=== PATIENT | female | born 1990 | race Caucasian/White ===

== ENCOUNTER 2018-08-04 04:12 | Emergency (ER) | payer MEDICAID, SELFPAY ==
[2018-08-04 04:14] VITALS: BP 128/89; PULSE 82; TEMP 36.6; O2SAT 100; BMI 18.3
--- NOTE | 2018-08-04 04:28 | EKG12_ITS ---
Test Reason : FLANK PAIN Blood Pressure : / mmHG Vent. Rate : 075 BPM Atrial Rate : 075 BPM P-R Int : 144 ms QRS Dur : 094 ms QT Int : 362 ms P-R-T Axes : 060 070 055 degrees QTc Int : 404 ms Normal sinus rhythm Incomplete right bundle branch block Confirmed by MATHEUS BARRIENTOS, HERRERA ([id number]), online content editor LYLA VAZQUEZ ([id number]) on 08/09/2018 2:44:26 PM Referred By: ALY Confirmed By:HERRREA JARVIS MD
--- NOTE | 2018-08-04 04:28 | RAD_ITS ---
STUDY: X-RAY CHEST REASON FOR EXAM: Female, 27 years old. Pain TECHNIQUE: Single frontal view of the chest. COMPARISON: None. FINDINGS: The lungs are clear and expanded. There is no demonstrated pleural abnormality. Normal size heart. Normal mediastinum and jorge. Normal visualized pulmonary arteries. Normal visualized aortic arch and descending thoracic aorta. There are mild degenerative changes of the visualized thoracic spine. Normal visualized ribs, clavicles, and shoulders. There is no demonstrated abnormality of the visualized soft tissue structures of the upper abdomen. RAD/Chest 1 View (Portable) IMPRESSION: No acute cardiopulmonary disease identified. Electronically Signed: Ruy Dennison, at 5:16 EST Tel , Service support ,
[2018-08-04] MEDS: Ketorolac 30 MG/ML Syringe IV (04:33)
[2018-08-04] MEDS: Ondansetron 4 MG/2 ML Vial IV (04:33)
[2018-08-04] MEDS: Morphine 4 MG/ML Syringe IV (04:33)
[2018-08-04] MEDS: 0.9% Normal Saline 1,000 ML 1000 ML IV (04:33)
[2018-08-04 04:46] LABS: Absolute Lymphocyte Count 2.33 X10^3/ul (0.83-4.51); Absolute Neutrophil Count 2.7 X10^3/uL (2.0-7.7); Basophil# 0.02 X10^3/uL; Basophil% 0.4 % (0-1); Eosinophil# 0.08 X10^3/uL; Eosinophils% 1.4 % (0-5); Hemoglobin 15.1 g/dl (12.0-15.0); Lymphocyte # 2.33 X10^3/ul (4.0); Mean Corp Hgb Conc 35.1 g/gl (32-36); Mean Corpuscular Hgb 30.8 pg (27.0-32.0); Mean Corpuscular Volume 87.8 fL (81-99); Mean Platelet Vol. 9.9 fl (6.2-12.0); Monocyte# 0.44 X10^3/uL; Monocyte% 7.9 % (0-10); Neutrophil # 2.67 X10^3/uL (2.7-7.7); Neutrophil % 48.1 % (47-70); Platelet Count 259 K/mm3 (150-450); RBC Distribution Width CV 12.4 % (11.6-14.6); RBC Distribution Width SD 39.3 fl (35.1-43.9); White Blood Count 5.6 K/mm3 (4.4-11.0)
[2018-08-04 04:47] LABS: POSITIVE COUNT NO; POSITIVE DIFFERENTIAL NO; POSITIVE MORPHOLOGY NO
[2018-08-04 05:12] LABS: ALB/GLOB Ratio 1.3 RATIO (0.9-2.4); AST(SGOT) 17 U/L (15-37); Alanine Aminotransfer ALT/SGPT 28 U/L (13-56); Albumin, Serum 4.6 g/dL (3.2-5.0); Alkaline Phosphatase 79 U/L (45-117); Anion Gap 11 (5-15); BUN 23 mg/dL (7-18); BUN/Creat Ratio 24.4 RATIO (10-20); Calcium,Total 9.5 mg/dL (8.5-10.1); Chloride 104 mmol/L (98-107); Creatinine, Serum 0.94 mg/dL (0.55-1.02); EST Glomerular Filtration Rate 76 mL/min (>60); Est Glom Filt Rate - Afr Amer 92 mL/min (>60); Estimated Creatinine Clearance 76.31 ml/min; Globulin 3.5 g/dL (2.2-4.2); Glucose 106 mg/dL (74-106); Lipase 110 U/L (73-393); Protein, Total 8.1 g/dL (6.4-8.2); Sodium Level 140 mmol/L (136-145)
[2018-08-04 05:16] LABS: Pregnancy, Serum, hCG Quali. NEGATIVE Negative (0-9 Nonpreg)
--- NOTE | 2018-08-04 05:19 | ED.DCSUM_ITS ---
- ER Visit Summary Date of Service: 08/04/18 Chief Complaint: Chest and abdominal pain History of Present Illness: The patient is a 27 F with no primary care physician. She reports that at 330 yesterday she had the onset of a chest tightness. She reports that is been gradually increasing. Is 10 out of 10 in severity. Is increased with eating or drinking. It is decreased with standing and walking. States that at the same timeframe she also developed upper abdominal pain. She denies any nausea, vomiting, diarrhea. Patient does report she has had chills and shortness of breath. She denies any fever. She denies any dysuria or frequency. No headache, numbness, or weakness. Physical Examination: Vitals: Stable. Afebrile. General: Well-nourished and well-developed. Head: Normocephalic atraumatic. Neck: Supple, no lymphadenopathy. No JVD. Nontender. Cardiovascular: Regular rate and rhythm. No murmurs. Respiratory: No respiratory distress. Clear to auscultation bilaterally. Abdominal: Soft, moderate epigastric and left upper quadrant tenderness to palpation, mild right upper quadrant tenderness to palpation, no Abarca sign, nondistended, normal bowel sounds. No guarding, rebound, or peritoneal signs. Back: Nontender. Extremities: Nontender, no edema. Skin: Normal color, no rash. Neurologic: Alert and oriented ?3. Cranial nerves II through XII are intact. Normal strength and sensation. Psych: Normal affect. Test Results: EKG is sinus at 75 with no acute changes. Troponin is negative despite greater than 12 hours of constant pain. Chest x-ray is normal. No pneumothorax or infiltrate. CBC is more for hemoglobin of 15.1. Chem-7 is more for BUN of 23. LFTs are normal. Lipase is negative. test is negative. Emergency Department Course and Treatment: Patient had an IV placed. She was treated with morphine, Toradol, and Zofran IV. She does feel improved. However, she reports that it seems as though the pain is localizing in her upper back. Patient reports she has never had this previously. She denies any intolerance to spicy or fatty foods. She states that she last ate approximately 7 hours before the onset of this pain. She denies any recent trauma. Treatment Plan: Discussed the patient at this time I do not have an explanation for her pain. An [facility] report was obtained which shows no prescriptions for opiates in the past year. She will be discharged with a prescription for [address] Earle. Instructed follow-up Dr. Saenz as soon as possible. Return to the emergency department for any worsening symptoms. Disposition: To home in improved and stable condition. Impression: 1. Upper back pain. 2. Chest pain, uncertain cause. 3. Abdominal pain, uncertain cause. This note was generated with [employer] dictation software. It may contain incorrect words, spelling, and punctuation that were not noted in review of the chart prior to signing ED Disposition - Plan for ED Patient: Chief Complaint: Flank Pain Instructions: ED Neck Back Pain General Prescriptions: Hydrocodone Bitart/Apap 5-325 [Earle 5MG-325MG] 1 tablet PO Q4H PRN PRN 2 Days #10 tablet PRN Reason: Pain Naproxen [Naprosyn] 500 mg PO BID PRN #20 tablet Referrals: Jason Saenz DO [[facility] STAFF PHYSICIAN] - As soon as possible
[2018-08-04 05:42] VITALS: BP 113/69; PULSE 87; RESP 16; O2SAT 97
[2018-08-04] MEDS: HYDROcodone Bitartrate/Apap 5/325 Tablet PO (05:47)
== END 2018-08-04 05:52 | disposition home or self-care (01) ==
LOC: ED 04:32
PROVIDERS: Emergency Provider Emergency Medicine
DX: R07.9 Chest pain, unspecified (principal); M54.6 Pain in thoracic spine; R10.10 Upper abdominal pain, unspecified; G89.29 Other chronic pain; R05 Cough; R30.0 Dysuria; Z72.0 Tobacco use
CPT/HCPCS: 71045; 80053; 83690; 84484; 84703; 85025; 93005; 96361; 96374; 96375; 99285; J7030; A4216; J2405